=== PATIENT | female | born 1965 | race Caucasian/White ===

== ENCOUNTER → 2022-12-20 11:03 | Outpatient (BNVA) | payer OTHER, SELFPAY | PROVIDERS: Visit Provider Nurse Practitioner Family | DX: R60.9 Edema, unspecified (principal); Z83.3 Family history of diabetes mellitus; J45.909 Unspecified asthma, uncomplicated; I10 Essential (primary) hypertension; E66.01 Morbid (severe) obesity due to excess calories | CPT/HCPCS: 80053; 80061; 82306; 83036; 84443 ==

== ENCOUNTER → 2023-06-06 09:12 | Outpatient (BNVA) | payer OTHER, SELFPAY | PROVIDERS: Visit Provider Nurse Practitioner Family | DX: J18.9 Pneumonia, unspecified organism (principal); J45.909 Unspecified asthma, uncomplicated; R50.9 Fever, unspecified; R06.2 Wheezing; R05.9 Cough, unspecified; I10 Essential (primary) hypertension; R60.9 Edema, unspecified; R05.1 Acute cough | CPT/HCPCS: 80053; 87486; 87581; 87633 ==

== ENCOUNTER → 2023-09-11 11:48 | Outpatient (BNVA) | payer OTHER, SELFPAY | PROVIDERS: Visit Provider Nurse Practitioner Family | DX: N39.0 Urinary tract infection, site not specified (principal); R31.9 Hematuria, unspecified; N20.0 Calculus of kidney; B37.9 Candidiasis, unspecified; I10 Essential (primary) hypertension; R10.9 Unspecified abdominal pain; R53.83 Other fatigue; R30.0 Dysuria | CPT/HCPCS: 80053; 82306; 82607; 82746; 84443; 85025 ==